=== PATIENT | male | born 1945 | race Hispanic/Latino ===

== ENCOUNTER → 2023-03-26 | Outpatient (CLI) | payer MEDICARE | END | disposition home or self-care (01) | LOC: RAH 08:51 | PROVIDERS: ATTEND Internal Medicine Gastroenterology | DX: I25.10 Atherosclerotic heart disease of native coronary artery without angina pectoris (principal); C18.9 Malignant neoplasm of colon, unspecified; I51.7 Cardiomegaly; Z98.890 Other specified postprocedural states; Z95.5 Presence of coronary angioplasty implant and graft | CPT/HCPCS: 71250 ==

== ENCOUNTER → 2023-03-27 | Outpatient (CLI) | payer MEDICARE ==
[~2023-03-27] MED LIST: IOHEXOL 350 MG/ML 100ML INFUS..BTL IV ONE
== END | disposition home or self-care (01) ==
LOC: RAH 08:32
PROVIDERS: ATTEND Internal Medicine Gastroenterology
DX: C18.9 Malignant neoplasm of colon, unspecified (principal)
CPT/HCPCS: 74178; Q9967

== ENCOUNTER 2023-08-07 19:55 | Emergency (ER) | payer MEDICARE ==
[~2023-08-07] VITALS: Ht 170.2 cm; Wt 79.4 kg
[~2023-08-07 19:55] MED LIST changes: +AEC81 PO; +CLOP75TA32 PO; +EZET10TA48 PO; +INSLAN SQ; -IOHEXOL 350 MG/ML 100ML INFUS..BTL IV ONE; +LEVO125C4 PO; +METF-444 PO; +MULT-1285 PO; +PANT40TA54 PO; +ROSU20TA73 PO; +TAMS-1 PO; +iron PO; +vitamin d3 PO
[2023-08-07 19:56] VITALS: BP 156/76; PULSE 68; RESP 18
[2023-08-07] MEDS ORDERED: CEPH500B PO (21:50)
[2023-08-07] MEDS ORDERED: CEFAZOLIN SODIUM 1 GM VIAL IM SCH (23:00)
== END 2023-08-07 23:02 | disposition left against medical advice (07) ==
LOC: EDH 19:55
DX: S61.411A Laceration without foreign body of right hand, initial encounter (principal); E11.9 Type 2 diabetes mellitus without complications; E78.00 Pure hypercholesterolemia, unspecified; I10 Essential (primary) hypertension; Z79.02 Long term (current) use of antithrombotics/antiplatelets; Z79.82 Long term (current) use of aspirin; Z79.84 Long term (current) use of oral hypoglycemic drugs; Z85.038 Personal history of other malignant neoplasm of large intestine; Z95.1 Presence of aortocoronary bypass graft; W26.9XXA Contact with unspecified sharp object(s), initial encounter; Y93.89 Activity, other specified; Y92.89 Other specified places as the place of occurrence of the external cause; Y99.8 Other external cause status
CPT/HCPCS: 73120

== ENCOUNTER → 2024-02-29 | Outpatient (CLI) | payer MEDICARE | END | disposition home or self-care (01) | LOC: OIH 16:38 | PROVIDERS: ATTEND Internal Medicine | DX: J44.9 Chronic obstructive pulmonary disease, unspecified (principal); I25.10 Atherosclerotic heart disease of native coronary artery without angina pectoris; M47.815 Spondylosis without myelopathy or radiculopathy, thoracolumbar region | CPT/HCPCS: 71046 ==